=== PATIENT | female | born 1950 | race Caucasian/White ===

== ENCOUNTER 2016-10-31 10:17 | Day surgery (SDC) | payer BC ==
[2016-10-26 15:18] VITALS: BMI 24.4
[~2016-10-31 10:17] MED LIST: LACTATED RINGERS 1,000 ML IV SCH
[2016-10-31 10:43] VITALS: TEMP 98.2
[2016-10-31] MEDS ORDERED: PROPOFOL 10 MG/ML 20 ML VIAL IV ONE (11:51)
--- NOTE | 2016-10-31 12:29 | P.PCN ---
Date of Procedure: 10/31/16 Preoperative Diagnosis: Postoperative Diagnosis: Procedure(s) Performed: Procedure: Total colonoscopy. Preoperative diagnosis: FH colon cancer. Postoperative diagnosis: Exam the cecum within normal limits. Preparation: HalfLytely prep. Sedation: Was provided by anesthesia. Brief clinical history: The patient is a 66-year-old female who is referred for this evaluation because of FH of colon cancer. Her last exam was July 2011. She has no abdominal complaints, bleeding or anemia. Procedure: With the patient on her left lateral decubitus position and after informed consent and adequate sedation, the perianal area was inspected and it did not show any fissures or fistulas. There were no masses felt on digital rectal examination. The Olympus CFQ 160L video colonoscope was then inserted in the rectum in the usual fashion and advanced to the cecum. The mucosa appeared healthy. No polyps or tumors were seen or any obvious diverticular disease. I retroflexed the endoscope in the rectum before the endoscope was withdrawn. The patient tolerated the procedure well. Plan: The patient was reassured. She'll follow-up with you as planned and I recommended repeat exam in 5 years. Implants: Indications for Procedure: Operative Findings: Description of Procedure:
[2016-10-31 12:49] VITALS: BP 148/82; PULSE 63; RESP 18
== END 2016-10-31 13:14 | disposition home or self-care (01) ==
LOC: ORWHC2ENDO 10:17
DX: Z12.11 Encounter for screening for malignant neoplasm of colon (principal); Z80.0 Family history of malignant neoplasm of digestive organs; M19.90 Unspecified osteoarthritis, unspecified site; Z79.1 Long term (current) use of non-steroidal anti-inflammatories (NSAID)
CPT/HCPCS: J2704; G0105

== ENCOUNTER → 2016-12-12 | Outpatient (CLI) | payer BC ==
--- NOTE | 2016-12-13 14:05 | MM ---
Reason for exam: screening (asymptomatic). Last mammogram was performed 1 year and 7 months ago. History: Patient is postmenopausal. Family history of breast cancer in maternal grandmother at age 52. Benign stereotactic core biopsy of the left breast, November 23, 2001. Excisional biopsy of the right breast, 1990. Physical Findings: Nurse did not find any significant physical abnormalities on exam. MG Screening Mammo w CAD Bilateral CC and MLO view(s) were taken. Prior study comparison: May 12, 2015, bilateral MG screening mammo w CAD. September 26, 2013, bilateral MG screening mammo w CAD. March 12, 2012, bilateral digital screening mammo w/CAD. October 30, 2009, right breast mammogram dig work up. The breast tissue is heterogeneously dense. This may lower the sensitivity of mammography. Previous mammotome biopsy in the left breast. Central asymmetric density was present on prior exams. It appear slightly more pronounced. Summation shadow is suspected, 6 month follow up recommended. ASSESSMENT: Probably benign, BI-RAD 3 RECOMMENDATION: Follow-up diagnostic mammogram of the right breast in 6 months.
== END | disposition home or self-care (01) ==
LOC: RADMAMWWP 11:01
PROVIDERS: ATTEND Obstetrics & Gynecology
DX: Z12.31 Encounter for screening mammogram for malignant neoplasm of breast (principal); Z80.3 Family history of malignant neoplasm of breast

== ENCOUNTER → 2017-09-28 | Outpatient (CLI) | payer MEDICARE ==
--- NOTE | 2017-09-28 14:44 | MM ---
Reason for exam: follow-up at short interval from prior study. Last mammogram was performed 10 months ago. History: Patient is postmenopausal. Family history of breast cancer in maternal grandmother at age 52. Benign stereotactic core biopsy of the left breast, November 23, 2001. Excisional biopsy of the right breast, 1990. Physical Findings: Nurse did not find any significant physical abnormalities on exam. MG 3D Diag Mammo W/Cad RT CC and MLO view(s) were taken of the right breast. Prior study comparison: December 12, 2016, bilateral MG screening mammo w CAD. May 12, 2015, bilateral MG screening mammo w CAD. The breast tissue is heterogeneously dense. This may lower the sensitivity of mammography. Post surgical changes lateral right breast. The previous asymmetry resolves on additional views. These results were verbally communicated with the patient and result sheet given to the patient on 09/28/17. ASSESSMENT: Benign, BI-RAD 2 RECOMMENDATION: Return to routine screening mammogram schedule for both breasts. Back on schedule for November 2017.
== END | disposition home or self-care (01) ==
LOC: RADMAMWWP 13:34
PROVIDERS: ATTEND Obstetrics & Gynecology
DX: R92.8 Other abnormal and inconclusive findings on diagnostic imaging of breast (principal)
CPT/HCPCS: 77065; G0279; 77061

== ENCOUNTER 2018-05-13 00:16 | Emergency (ER) | payer MEDICARE ==
[2018-05-13 00:33] VITALS: TEMP 98.2
[2018-05-13 00:35] LABS: Glucose,Whole Blood 98 mg/dL (75-99)
--- NOTE | 2018-05-13 00:38 | CT ---
EXAMINATION TYPE: CT brain wo con for TPA DATE OF EXAM: 05/13/2018 COMPARISON: None HISTORY: code stroke CT DLP: 864.3 mGycm Automated exposure control for dose reduction was used. FINDINGS: There is mild cerebral cortical atrophy. There is no mass effect nor midline shift. There is no sign of intracranial hemorrhage. There are small patchy areas of hypodensity in the periventricular white matter. This is more noticeable in the left posterior parietal lobe. The calvarium is intact. IMPRESSION: CEREBRAL ATROPHY AND CHRONIC SMALL VESSEL ISCHEMIA. NO ACUTE INTRACRANIAL ABNORMALITY.
--- NOTE | 2018-05-13 00:51 | CT ---
EXAMINATION TYPE: CT angio head neck DATE OF EXAM: 05/13/2018 HISTORY: code stroke COMPARISON: None CT DLP: 315.2 mGycm. Automated Exposure Control for Dose Reduction was Utilized. TECHNIQUE: CTA scan of the neck is performed with IV Contrast, patient injected with 65mL mL of Isov ue 370, axial images are obtained, coronal and sagittal reformatted images are reviewed. Three-D deny nstructed images are created on an independent workstation and reviewed. FINDINGS: There is normal branching pattern of the great vessels on the aortic arch. There is bilateral arteria l flow in the subclavian arteries. There is bilateral arterial flow in the vertebral arteries which a re fairly symmetric. There is arterial flow in the common internal and external carotid arteries. I s ee no evidence of carotid or vertebral artery aneurysm or dissection. There is no evidence of carotid or vertebral artery stenosis. There is arterial flow in both distal intracranial internal carotid ar teries. There is arterial flow in the vertebrobasilar artery system. There is arterial flow in the anterior m iddle and posterior cerebral arteries. There is normal contrast opacification of the venous sinuses. I see no evidence of intracranial aneurysm or neovascularity. There is no mass effect. There is no ev idence of hemodynamic stenosis. IMPRESSION: Negative CT angiogram of the neck. Negative CT angiogram of the brain.
[2018-05-13 00:59] LABS: Basophils % (A) 1 %; Eosinophils % (A) 1 %; HCT 36.4 % (34.0-46.0); HGB 12.4 gm/dL (11.4-16.0); Lymphocytes # (A) 0.9 k/uL (1.0-4.8); Lymphocytes % (A) 19 %; MCH 30.3 pg (25.0-35.0); MCHC 34.1 g/dL (31.0-37.0); MCV 88.9 fL (80.0-100.0); Mean Platelet Volume 8.2; Monocytes # (A) 0.2 k/uL (0-1.0); Monocytes % (A) 4 %; Neutrophils # (A) 3.6 k/uL (1.3-7.7); Neutrophils % (A) 74 %; Platelet Count 137 k/uL (150-450); RBC 4.09 m/uL (3.80-5.40); RDW 13.5 % (11.5-15.5); WBC 4.9 k/uL (3.8-10.6)
[2018-05-13] MEDS ORDERED: ALTEPLASE 100 MG VIAL IV STA (01:06)
[2018-05-13] MEDS ORDERED: LABETALOL 5 MG/ML VIAL MDV IVP STA (01:08)
[2018-05-13 01:10] LABS: ALT 37 U/L (9-52); AST 24 U/L (14-36); Albumin 3.9 g/dL (3.5-5.0); Alkaline Phosphatase 90 U/L (38-126); Anion Gap 8 mmol/L; Blood Urea Nitrogen 17 mg/dL (7-17); Calcium 9.3 mg/dL (8.4-10.2); Carbon Dioxide 23 mmol/L (22-30); Chloride 103 mmol/L (98-107); Glucose 98 mg/dL (74-99); INR 0.9 (<1.2); Partial Thromboplastin Time 24.9 sec (22.0-30.0); Potassium 4.3 mmol/L (3.5-5.1); Prothrombin Time 10.2 sec (9.0-12.0); Sodium 134 mmol/L (137-145); Total Bilirubin 0.4 mg/dL (0.2-1.3); Total Protein 6.4 g/dL (6.3-8.2)
[2018-05-13] MEDS ORDERED: ALTEPLASE 51 MG in EMPTY BAG 1 BAG IV STA (01:10)
[2018-05-13] MEDS ORDERED: ALTEPLASE BOLUS 6 MG in EMPTY SYRINGE 1 SYR IV STA (01:10)
--- NOTE | 2018-05-13 01:13 | ED ---
Neuro HPI - General Chief Complaint: Neuro Symptoms/Deficit Stated Complaint: Possible CVA Time Seen by Provider: 05/13/18 00:22 Source: EMS Mode of arrival: EMS Limitations: no limitations - History of Present Illness Is the patient presenting with stroke symptoms?: Yes Last Known Well Date: 05/13/18 Last Known Well Time: 23:30 -: hour(s) Initial Comments: This patient is a 68-year-old woman presenting with concern of possible stroke. She states she had been feeling like her usual self until approximately 11:30 when as she was getting ready go to bed she noticed that she was experiencing numbness of the left side of her face and that she is having difficulty using her left arm. Her left leg also was feeling weak. When the symptoms did not resolve they called EMS. Patient denies previous history of TIA or stroke. She denies any headache, change in vision, or speech. No chest pain, palpitations, dyspnea or diaphoresis. Location: left face, left arm, left leg History of same: No Place: home Severity: mild Quality: weak, numb Improves With: none Worsens With: none On Anticoagulants: No Context: sudden onset Associated Symptoms: denies other symptoms Treatments Prior to Arrival: none - Related Data Home Medications: Home Medications Medication Instructions Recorded Confirmed Aspirin 81 mg PO DAILY 10/26/16 10/31/16 Calcium Carbonate [Calcium] 600 mg PO DAILY 10/26/16 10/31/16 Naproxen Sodium [Aleve] 440 mg PO DAILY 10/26/16 10/31/16 Allergies/Adverse Reactions: Allergies Allergy/AdvReac Type Severity Reaction Status Date / Time No Known Allergies Allergy Verified 10/31/16 10:32 Review of Systems ROS Statement: Those systems with pertinent positive or pertinent negative responses have been documented in the HPI. ROS Other: All systems not noted in ROS Statement are negative. Constitutional: Denies: fever, chills Eyes: Denies: vision change Respiratory: Denies: cough, dyspnea Cardiovascular: Denies: palpitations, orthopnea, syncope Gastrointestinal: Denies: abdominal pain, nausea, vomiting, melena, hematochezia Genitourinary: Denies: dysuria, hematuria Musculoskeletal: Denies: back pain Skin: Denies: rash Neurological: Reports: as per HPI, weakness, numbness. Denies: headache, confusion, abnormal gait, vertigo Hematological/Lymphatic: Denies: easy bleeding General Exam Limitations: no limitations General appearance: alert, in no apparent distress Head exam: Present: atraumatic, normocephalic, normal inspection Eye exam: Present: normal appearance, PERRL, EOMI. Absent: scleral icterus, nystagmus ENT exam: Present: normal oropharynx Neck exam: Present: normal inspection, full ROM. Absent: tenderness Respiratory exam: Present: normal lung sounds bilaterally. Absent: respiratory distress, wheezes, rales, rhonchi, stridor Cardiovascular Exam: Present: regular rate, normal rhythm, normal heart sounds. Absent: systolic murmur, diastolic murmur, rubs, gallop GI/Abdominal exam: Present: soft. Absent: distended, tenderness, guarding, rebound Extremities exam: Present: normal inspection, normal capillary refill. Absent: pedal edema, calf tenderness Back exam: Present: normal inspection Neurological exam: Present: alert, oriented X3, CN II-XII intact, motor sensory deficit Expanded Neurological exam: Present: protecting the airway. Absent: inattentive, memory loss-remote event, memory loss-recent event, ataxia, receptive aphasia, expressive aphasia, tremor Patient oriented to: Present: person, place, time Speech: Present: fluid speech Cranial nerves: EOM's Intact: Normal, Facial Sensation: Normal Motor strength exam: RUE: 5, LUE: 4, RLE: 5, LLE: 3 Eye Response: (4) open spontaneously Motor Response: (6) obeys commands Verbal Response: (5) oriented Dillon Total: 15 Skin exam: Present: warm, dry, intact, normal color. Absent: rash Stroke MDM - Lab Data Result diagrams: 05/13/18 00:40 05/13/18 00:40 Lab Results 05/13/18 05/13/18 05/13/18 Range/Units 00:32 00:40 00:40 WBC 4.9 (3.8-10.6) k/uL RBC 4.09 (3.80-5.40) m/uL Hgb 12.4 (11.4-16.0) gm/dL Hct 36.4 (34.0-46.0) % MCV 88.9 (80.0-100.0) fL MCH 30.3 (25.0-35.0) pg MCHC 34.1 (31.0-37.0) g/dL RDW 13.5 (11.5-15.5) % Plt Count 137 L (150-450) k/uL Neutrophils % 74 % Lymphocytes % 19 % Monocytes % 4 % Eosinophils % 1 % Basophils % 1 % Neutrophils # 3.6 (1.3-7.7) k/uL Lymphocytes # 0.9 L (1.0-4.8) k/uL Monocytes # 0.2 (0-1.0) k/uL Eosinophils # 0.0 (0-0.7) k/uL Basophils # 0.0 (0-0.2) k/uL PT (9.0-12.0) sec INR (<1.2) APTT (22.0-30.0) sec Sodium (137-145) mmol/L Potassium (3.5-5.1) mmol/L Chloride (98-107) mmol/L Carbon Dioxide (22-30) mmol/L Anion Gap mmol/L BUN (7-17) mg/dL Creatinine (0.52-1.04) mg/dL Est GFR (CKD-EPI)AfAm (>60 ml/min/1.73 sqM) Est GFR (CKD-EPI)NonAf (>60 ml/min/1.73 sqM) Glucose (74-99) mg/dL POC Glucose (mg/dL) 98 (75-99) mg/dL POC Glu Supervisor Type Bar And Segment ID Adrianna Valle Calcium (8.4-10.2) mg/dL Total Bilirubin (0.2-1.3) mg/dL AST (14-36) U/L ALT (9-52) U/L Alkaline Phosphatase (38-126) U/L Total Creatine Kinase 39 (30-135) U/L CK-MB (CK-2) 0.4 (0.0-2.4) ng/mL CK-MB (CK-2) Rel Index 1.0 Troponin I <0.012 (0.000-0.034) ng/mL Total Protein (6.3-8.2) g/dL Albumin (3.5-5.0) g/dL 05/13/18 05/13/18 Range/Units 00:40 00:40 WBC (3.8-10.6) k/uL RBC (3.80-5.40) m/uL Hgb (11.4-16.0) gm/dL Hct (34.0-46.0) % MCV (80.0-100.0) fL MCH (25.0-35.0) pg MCHC (31.0-37.0) g/dL RDW (11.5-15.5) % Plt Count (150-450) k/uL Neutrophils % % Lymphocytes % % Monocytes % % Eosinophils % % Basophils % % Neutrophils # (1.3-7.7) k/uL Lymphocytes # (1.0-4.8) k/uL Monocytes # (0-1.0) k/uL Eosinophils # (0-0.7) k/uL Basophils # (0-0.2) k/uL PT 10.2 (9.0-12.0) sec INR 0.9 (<1.2) APTT 24.9 (22.0-30.0) sec Sodium 134 L (137-145) mmol/L Potassium 4.3 (3.5-5.1) mmol/L Chloride 103 (98-107) mmol/L Carbon Dioxide 23 (22-30) mmol/L Anion Gap 8 mmol/L BUN 17 (7-17) mg/dL Creatinine 0.73 (0.52-1.04) mg/dL Est GFR (CKD-EPI)AfAm >90 (>60 ml/min/1.73 sqM) Est GFR (CKD-EPI)NonAf 86 (>60 ml/min/1.73 sqM) Glucose 98 (74-99) mg/dL POC Glucose (mg/dL) (75-99) mg/dL POC Glu Supervisor Type Bar And Segment ID Calcium 9.3 (8.4-10.2) mg/dL Total Bilirubin 0.4 (0.2-1.3) mg/dL AST 24 (14-36) U/L ALT 37 (9-52) U/L Alkaline Phosphatase 90 (38-126) U/L Total Creatine Kinase (30-135) U/L CK-MB (CK-2) (0.0-2.4) ng/mL CK-MB (CK-2) Rel Index Troponin I (0.000-0.034) ng/mL Total Protein 6.4 (6.3-8.2) g/dL Albumin 3.9 (3.5-5.0) g/dL - Medical Decision Making Patient is 68-year-old woman presenting by ambulance for concern about acute stroke. She is immediately sent for computed tomography scan on arrival. She is seen by the stroke team using the stroke robot. After discussion of the indications, risks and benefits, the patient does give informed consent for receiving TPA and she elects to take the medicine. Transfer arranged for further stroke care. - EKG Data -: EKG Interpreted by Me EKG shows normal: sinus rhythm, axis (Normal), intervals (Normal), QRS complexes (Normal), ST-T waves (Normal) Rate: normal (Rate 73 bpm) Interpretation: normal EKG Past Medical History Past Medical History: Osteoarthritis (OA) History of Any Multi-Drug Resistant Organisms: None Reported Past Surgical History: Hysterectomy Past Anesthesia/Blood Transfusion Reactions: Previous Problems w/ Anesthesia, Family History of Problems w/ Anesthesia Additional Past Anesthesia/Blood Transfusion Reaction / Comment(s): MOM AND SISTER HAVE HAD NAUDEA AND VOMITING Smoking Status: Never smoker - Past Family History Mother Family Medical History: No Reported History Course Vital Signs 05/13/18 05/13/18 05/13/18 00:18 00:32 00:40 Temperature 98.2 F Pulse Rate 77 79 75 Respiratory 16 28 H 15 Rate Blood Pressure 200/112 200/112 O2 Sat by Pulse 97 Oximetry 05/13/18 05/13/18 05/13/18 00:50 01:00 01:15 Temperature Pulse Rate 70 72 71 Respiratory 19 18 16 Rate Blood Pressure 189/88 189/88 196/142 O2 Sat by Pulse 96 Oximetry 05/13/18 05/13/18 01:30 01:45 Temperature Pulse Rate 74 80 Respiratory 18 14 Rate Blood Pressure 175/98 136/108 O2 Sat by Pulse 98 Oximetry Critical Care Time Critical Care Time: Yes (45 minutes) Disposition Clinical Impression: Acute ischemic stroke Disposition: OTHER INSTITUTION NOT DEFINED Condition: Critical Is patient prescribed a controlled substance at d/c from ED?: No Referrals: Carin Vee MD [Primary Care Provider] - 1-2 days - Out of Hospital Transfer - Req. Specs Out of Hospital Transfer - Requested Specifics: Neurological ICU
[2018-05-13] MEDS ORDERED: LABETALOL SYRINGE 5 MG/ML IVP STA (01:15)
[2018-05-13 01:21] LABS: Creatine Kinase 39 U/L (30-135)
[2018-05-13 01:34] LABS: Creatine Kinase MB 0.4 ng/mL (0.0-2.4); Troponin I <0.012 ng/mL (0.000-0.034)
[2018-05-13 01:47] VITALS: BP 136/108; PULSE 80; RESP 14
== END 2018-05-13 01:51 | disposition short-term general hospital (02) ==
LOC: EC 00:16
DX: I63.9 Cerebral infarction, unspecified (principal); M19.90 Unspecified osteoarthritis, unspecified site; Z79.1 Long term (current) use of non-steroidal anti-inflammatories (NSAID); Z79.82 Long term (current) use of aspirin; Z79.899 Other long term (current) drug therapy
CPT/HCPCS: 36415; 93005; 80053; 82550; 82553; 84484; 85025; 85610; 85730; 70496; 70450; 70498; 99291; 96374; J2997; Q9967

== ENCOUNTER → 2018-12-10 | Outpatient (CLI) | payer MEDICARE ==
--- NOTE | 2018-12-11 13:52 | MM ---
Reason for exam: screening (asymptomatic). Last mammogram was performed 1 year and 2 months ago. History: Patient is postmenopausal. Family history of breast cancer in maternal grandmother at age 52. Benign stereotactic core biopsy of the left breast, November 23, 2001. Excisional biopsy of the right breast, 1990. Took hormonal contraceptives for 25 years. Physical Findings: A clinical breast exam by your physician is recommended on an annual basis and results should be correlated with mammographic findings. MG 3D Screening Mammo W/Cad Bilateral CC and MLO view(s) were taken. Prior study comparison: September 28, 2017, right breast MG 3d diag mammo w/cad RT. December 12, 2016, bilateral MG screening mammo w CAD. The breast tissue is heterogeneously dense. This may lower the sensitivity of mammography. Left biopsy marker. Post excisional change on the right. No suspicious abnormality. Cardiac loop recorder on the left. No significant changes when compared with prior studies. ASSESSMENT: Benign, BI-RAD 2 RECOMMENDATION: Routine screening mammogram of both breasts in 1 year.
== END | disposition home or self-care (01) ==
LOC: RADMAMWWP 10:18
PROVIDERS: ATTEND Internal Medicine
DX: Z12.31 Encounter for screening mammogram for malignant neoplasm of breast (principal)
CPT/HCPCS: 77063; 77067

== ENCOUNTER → 2021-06-08 | Outpatient (CLI) | payer MEDICARE ==
--- NOTE | 2021-06-08 13:49 | BD ---
EXAMINATION TYPE: Axial Bone Density DATE OF EXAM: 06/08/2021 COMPARISON: 2002 CLINICAL HISTORY: disorder of bone, [id number] Height: 5'2'1/2 Weight: 128 FRAX RISK QUESTIONS: Secondary Osteoporosis: RISK FACTORS HISTORY OF: Postmenopausal woman: y MEDICATIONS: Additional Medications: blood pressure, blood thinner, cholesterol Additional History: EXAM MEASUREMENTS: Bone mineral densitometry was performed using the [employer] System. Bone mineral density as measured about the Lumbar spine is: ----- L1-L4(G/cm2): 0.907 T Score Values are as follows: ----- L2: -1.8 ----- L3: -2.9 ----- L4: -2.0 ----- L1-L4: -2.3 Bone mineral density has: Decreased -10.2% since study of: 01/09/2003 Bone mineral density about the R hip (g/cm2): 0.674 Bone mineral density about the L hip (g/cm2): 0.638 T Score values are as follows: -----R Neck: -2.6 -----L Neck: -2.9 -----R Total: -2.3 -----L Total: -2.8 Bone mineral density has: decreased -20.6% since study of: 01/09/2003 IMPRESSION: Osteoporosis (T Score less than -2.5). There is increased fracture risk and therapy is usually indicated based on age. Re-Screen 1-2 years. NOTE: T-SCORE=SD OF THE YOUNG ADULT MEAN.
--- NOTE | 2021-06-10 10:56 | MM ---
Reason for exam: screening (asymptomatic). Last mammogram was performed 2 years and 6 months ago. History: Patient is postmenopausal. Family history of breast cancer in maternal grandmother at age 52. Benign stereotactic core biopsy of the left breast, November 23, 2001. Excisional biopsy of the right breast, 1990. Took hormonal contraceptives for 25 years. Physical Findings: A clinical breast exam by your physician is recommended on an annual basis and results should be correlated with mammographic findings. MG 3D Screening Mammo W/Cad Bilateral CC and MLO view(s) were taken. Prior study comparison: December 10, 2018, bilateral MG 3d screening mammo w/cad. September 28, 2017, right breast MG 3d diag mammo w/cad RT. The breast tissue is heterogeneously dense. This may lower the sensitivity of mammography. Previous mammotome biopsy in the left breast. Loop recorder device on the left. No significant changes when compared with prior studies. ASSESSMENT: Benign, BI-RAD 2 RECOMMENDATION: Routine screening mammogram of both breasts in 1 year.
== END | disposition home or self-care (01) ==
LOC: RADMAMWWP 12:25
PROVIDERS: ATTEND Internal Medicine
DX: Z12.31 Encounter for screening mammogram for malignant neoplasm of breast (principal); M81.0 Age-related osteoporosis without current pathological fracture; Z80.3 Family history of malignant neoplasm of breast; Z78.0 Asymptomatic menopausal state
CPT/HCPCS: 77063; 77067; 77080

== ENCOUNTER → 2023-06-20 | Outpatient (CLI) | payer MEDICARE ==
--- NOTE | 2023-06-22 20:41 | MM ---
Reason for Exam: Screening (asymptomatic). Last screening mammogram was performed 12 month(s) ago. Patient History: Menarche at age 15. First Full-Term at age 27. Left ovary removed at age 47. Right ovary removed at age 47. Hysterectomy at age 47. Postmenopausal. Patient used Hormonal Contraceptives for 25 years. 1990, Excisional Biopsy on the Right side. 11/23/2001, Benign Stereotactic Core Biopsy on the left side. Maternal grandmother had breast cancer, age 52. Risk Values: Dee 5 year model risk: 2.9%. NCI Lifetime model risk: 7.9%. Prior Study Comparison: 12/10/2018 Bilateral Screening Mammogram, [facility]. 06/08/2021 Bilateral Screening Mammogram, [facility]. 06/09/2022 Bilateral MG 3D screening mammo w/cad, [facility]. Tissue Density: The breast tissue is heterogeneously dense. This may lower the sensitivity of mammography. Findings: Analyzed By CAD. Lateral asymmetric density right cc view middle depth incompletely disperses on 3 images. Further evaluation is recommended. Microclip left breast from prior biopsy. Previously reported device on the left has been removed. Overall Assessment: Incomplete: need additional imaging evaluation, BI-RAD 0 Management: Special View Mammogram of the right breast. Diagnostic Breast Ultrasound of the right breast. Additional views right breast include spot 3-D CC, 3-D CC rolled, and 3-D lateral views. Targeted right breast ultrasound if any persisting abnormality.. [facility] will attempt to contact patient to return for supplemental views and ultrasound if indicated. Electronically signed and approved by: Jones Savage M.D. Radiologist
== END | disposition home or self-care (01) ==
LOC: RADMAMWWP 12:22
PROVIDERS: ATTEND Internal Medicine
DX: Z12.31 Encounter for screening mammogram for malignant neoplasm of breast (principal); Z80.3 Family history of malignant neoplasm of breast; Z78.0 Asymptomatic menopausal state
CPT/HCPCS: 77063; 77067

== ENCOUNTER → 2023-06-29 | Outpatient (CLI) | payer MEDICARE ==
--- NOTE | 2023-06-29 10:42 | MM ---
Reason for Exam: Additional evaluation requested from abnormal screening. Last screening mammogram was performed less than 1 month ago. Patient History: Menarche at age 15. First Full-Term at age 27. Left ovary removed at age 47. Right ovary removed at age 47. Hysterectomy at age 47. Postmenopausal. Patient used Hormonal Contraceptives for 25 years. 1990, Excisional Biopsy on the Right side. 11/23/2001, Benign Stereotactic Core Biopsy on the left side. Maternal grandmother had breast cancer, age 52. Risk Values: Dee 5 year model risk: 2.9%. NCI Lifetime model risk: 7.9%. Tissue Density: Right: The breast tissue is heterogeneously dense. This may lower the sensitivity of mammography. Findings: Analyzed By CAD. The questioned area of asymmetric density lateral aspect of the right breast at a middle depth becomes less defined on additional views with an appearance unchanged from older priors. Findings compatible with superimposition shadow. Overall Assessment: Benign, BI-RAD 2 Management: Screening Mammogram of both breasts in 1 year. . Results were given to the patient verbally at the time of exam. Patient should continue monthly self-breast exams. A clinical breast exam by your physician is recommended on an annual basis. This exam should not preclude additional follow-up of suspicious palpable abnormalities. Note on Dee scores and lifetime risk: 1. A Dee score greater than 3% is considered moderate risk. If this is the case, consider specialist referral to assess eligibility for a risk reducing agent. 2. If overall lifetime risk for the development of breast cancer is 20% or higher, the patient may qualify for future screening with alternating mammogram and breast MRI. Electronically signed and approved by: Jones Savage M.D. Radiologist
== END | disposition home or self-care (01) ==
LOC: RADMAMWWP 10:04
PROVIDERS: ATTEND Internal Medicine
DX: R92.331 Mammographic heterogeneous density, right breast (principal); Z80.3 Family history of malignant neoplasm of breast; Z78.0 Asymptomatic menopausal state
CPT/HCPCS: 77065; G0279; 77061

== ENCOUNTER → 2024-07-19 | Outpatient (CLI) | payer MEDICARE ==
--- NOTE | 2024-07-22 07:48 | MM ---
Reason for Exam: Screening (asymptomatic). Last mammogram was performed 1 year(s) and 1 month(s) ago. Patient History: Menarche at age 15. First Full-Term at age 27. Left ovary removed at age 47. Right ovary removed at age 47. Hysterectomy at age 47. Postmenopausal. Patient used Hormonal Contraceptives for 25 years. 1990, Excisional Biopsy on the Right side. 11/23/2001, Benign Stereotactic Core Biopsy on the left side. Maternal grandmother had breast cancer, age 52. Risk Values: Dee 5 year model risk: 2.9%. NCI Lifetime model risk: 7.5%. Prior Study Comparison: 06/09/2022 Bilateral MG 3D screening mammo w/cad, [facility]. 06/20/2023 Bilateral MG 3D screening mammo w/cad, [facility]. 06/29/2023 Right MG 3D work up w/cad RT, [facility]. Tissue Density: The breasts are extremely dense, which lowers the sensitivity of mammography. Findings: Analyzed By CAD. Benign-appearing calcifications. There is a nodular density along the inner lower margin left breast. Spot compression views recommended. Overall Assessment: Incomplete: need additional imaging evaluation, BI-RAD 0 Management: Special View Mammogram of the left breast. . Patient should continue monthly self-breast exams. A clinical breast exam by your physician is recommended on an annual basis. This exam should not preclude additional follow-up of suspicious palpable abnormalities. Note on Dee scores and lifetime risk: 1. A Dee score greater than 3% is considered moderate risk. If this is the case, consider specialist referral to assess eligibility for a risk reducing agent. 2. If overall lifetime risk for the development of breast cancer is 20% or higher, the patient may qualify for future screening with alternating mammogram and breast MRI. [facility], , 07/22/2024 7:45 AM. Electronically signed and approved by: Daniel Angulo M.D. Radiologis
== END | disposition home or self-care (01) ==
LOC: RADMAMWWP 16:03
PROVIDERS: ATTEND Internal Medicine
DX: Z12.31 Encounter for screening mammogram for malignant neoplasm of breast (principal); R92.343 Mammographic extreme density, bilateral breasts; Z78.0 Asymptomatic menopausal state; Z92.0 Personal history of contraception; Z80.3 Family history of malignant neoplasm of breast
CPT/HCPCS: 77063; 77067

== ENCOUNTER → 2024-07-29 | Outpatient (CLI) | payer MEDICARE ==
--- NOTE | 2024-07-29 15:07 | MM ---
Reason for Exam: Additional evaluation requested from abnormal screening. Last screening mammogram was performed less than 1 month ago. Patient History: Menarche at age 15. First Full-Term at age 27. Left ovary removed at age 47. Right ovary removed at age 47. Hysterectomy at age 47. Postmenopausal. Patient used Hormonal Contraceptives for 25 years. 1990, Excisional Biopsy on the Right side. 11/23/2001, Benign Stereotactic Core Biopsy on the left side. Maternal grandmother had breast cancer, age 52. Risk Values: Dee 5 year model risk: 2.9%. NCI Lifetime model risk: 7.5%. Prior Study Comparison: 06/20/2023 Bilateral MG 3D screening mammo w/cad, [facility]. 06/29/2023 Right MG 3D work up w/cad RT, [facility]. 07/19/2024 Bilateral MG 3D screening mammo w/cad, [facility]. Tissue Density: Left: The breasts are heterogeneously dense, which may obscure small masses. Findings: Analyzed By CAD. Nodular density does not persist on all views obtained. 6 month follow-up of the left breast is recommended as a precautionary measure. Overall Assessment: Probably benign, BI-RAD 3 Management: Diagnostic Mammogram of the left breast in 6 months. . Results were given to the patient verbally at the time of exam. Patient should continue monthly self-breast exams. A clinical breast exam by your physician is recommended on an annual basis. This exam should not preclude additional follow-up of suspicious palpable abnormalities. Note on Dee scores and lifetime risk: 1. A Dee score greater than 3% is considered moderate risk. If this is the case, consider specialist referral to assess eligibility for a risk reducing agent. 2. If overall lifetime risk for the development of breast cancer is 20% or higher, the patient may qualify for future screening with alternating mammogram and breast MRI. [facility], , 07/29/2024 3:05 PM. Electronically signed and approved by: Reji Rodriguez M.D. Radiolog[facility]
== END | disposition home or self-care (01) ==
LOC: RADMAMWWP 14:42
PROVIDERS: ATTEND Internal Medicine
DX: R92.8 Other abnormal and inconclusive findings on diagnostic imaging of breast (principal); R92.332 Mammographic heterogeneous density, left breast; Z78.0 Asymptomatic menopausal state; Z92.0 Personal history of contraception; Z80.3 Family history of malignant neoplasm of breast
CPT/HCPCS: 77065; G0279; 77061